=== PATIENT | female | born 1975 | race Caucasian/White ===

== ENCOUNTER → 2019-05-23 08:08 | Outpatient (CLI) | payer OTHER, SELFPAY ==
--- NOTE | 2019-05-23 | DI.MRI.S_ITS ---
PROCEDURE: MR SHOULDER LT WO CON INDICATIONS: Pain in left shoulder TECHNIQUE: Noncontrast oblique coronal T2 fast spin echo with fat saturation, oblique sagittal T1 spin echo and T2 fast spin echo with fat saturation, axial T1 spin echo and T2 fast spin echo with fat saturation through the shoulder. COMPARISON: [facility], CR, SHOULDER 2 VIEW, 12/14/2010, 15:39. [facility], CR, SHOULDER 2 VIEW, 03/25/2009, 13:18. [facility], MR, SHOULDER WITHOUT CONTRAST, 08/13/2013, 16:03. [facility], CR, CHEST 2 VIEW, 01/08/2010, 18:55. FINDINGS: Image quality: Excellent. Rotator cuff: There is thickening and irregularity of the supraspinatus and subscapularis tendons consistent with tendinitis. The infraspinatus tendon appear normal. Sagittal images demonstrate no rotator cuff muscle atrophy. Bones and bursae: Metallic artifact in the mid humeral shaft. There is retroversion. No bone marrow contusions or fractures. Mild acromioclavicular joint degeneration. The acromion demonstrates conventional anatomy, without an os acromiale. No pathologic subacromial-subdeltoid or subcoracoid bursal fluid is present. Capsule and soft tissues: There is degenerative fraying of the anterior superior labrum. In the absence of intra-articular contrast, the glenohumeral ligaments appear intact. The bicipital groove is empty, suspicious for tear of the long head of the biceps tendon. There is tenodeses of the long head of the biceps tendon. The rotator interval appears normal, without fibrosis. The coracohumeral ligament is normal in thickness. IMPRESSION: 1. Supraspinatus and subscapularis tendinitis. 2. The long head of the biceps tendon is not seen in the bicipital groove. There are surgical artifacts in the humeral shaft possibly related to biceps tenodesis. Recommend currently with surgical history. 3. Degenerative fraying of the anterior superior labrum. 4. Mild acromioclavicular joint degeneration. Dictated by: Jamison Lyles M.D. on 05/25/2019 at 17:41 Approved by: Jamison Lyles M.D. on 05/25/2019 at 18:47
== END ==
PROVIDERS: PCP Family Medicine Geriatric Medicine; Visit Provider Family Medicine Geriatric Medicine
DX: M25.512 Pain in left shoulder (principal); S46.212A Strain of muscle, fascia and tendon of other parts of biceps, left arm, initial encounter; M62.81 Muscle weakness (generalized); M19.012 Primary osteoarthritis, left shoulder; M77.9 Enthesopathy, unspecified
CPT/HCPCS: 73221

== ENCOUNTER → 2025-04-07 07:36 | Outpatient (CLI) | payer BC, SELFPAY ==
--- NOTE | 2025-04-07 07:40 | DI.MRI.S_ITS ---
PROCEDURE: MR LUMBAR SPINE WO CON INDICATIONS: Unspecified injury of lower back TECHNIQUE: Noncontrast sagittal T1 spin echo and T2 fast echo, sagittal STIR, and T2 fast spin echo through the lumbar spine. In cases with scoliosis, additional coronal T2 fast spin echo may be performed. COMPARISON: None. FINDINGS: Image quality: Excellent. Alignment and Curvature: There is normal bony alignment. Bone Marrow: Mixed Modic reactive endplate changes adjacent to the L2-L3 and L5-S1 discs. No acute vertebral body compression fractures. Spinal Cord: Conus medullaris terminates at the L1 level. Visualized cord demonstrates normal signal and size. Paraspinous Soft Tissues: No paravertebral masses. T12-L1: Normal appearance. L1-L2: Normal appearance. L2-L3: Loss of disc signal and height. Mild narrowing of the central canal. Mild to moderate bilateral neural foraminal narrowing. No neural compression. L3-L4: Loss of disc signal. Mild, diffuse disc bulge. Small right central disc extrusion. Extruded disc material extends inferiorly along the L4 vertebral body into the right L4 lateral recess. Extruded disc material abuts and compresses the right L4 nerve root. Mild narrowing of the central canal. Mild bilateral neural foraminal narrowing. L4-L5: Loss of disc signal and height. Mild to moderate diffuse disc bulge. Mild bilateral facet hypertrophy. Mild narrowing of the central canal. Moderate bilateral neural foraminal narrowing. No neural compression. L5-S1: Loss of disc signal and height. Moderate, diffuse disc bulge. Mild bilateral facet hypertrophy. No central stenosis. Severe bilateral neural foraminal narrowing with compression of the L5 nerve roots. IMPRESSION: Multilevel degenerative disc disease.. Multilevel facet arthropathy. L3-L4 right central disc extrusion. Extruded disc material compresses the right L4 nerve root. No severe central canal stenosis. Severe bilateral L5-S1 neural foraminal stenosis with compression of the L5 nerve roots. Dictated by: Yoselin Anguiano MD, PhD on 04/07/2025 at 12:49 Approved by: Yoselin Anguiano MD, PhD on 04/07/2025 at 12:53
== END ==
LOC: MRI 07:39
PROVIDERS: PCP Family Medicine Geriatric Medicine; Referring Provider Family Medicine Geriatric Medicine; Visit Provider Nurse Practitioner Family
DX: S39.92XA Unspecified injury of lower back, initial encounter (principal); N31.9 Neuromuscular dysfunction of bladder, unspecified; M51.16 Intervertebral disc disorders with radiculopathy, lumbar region; M51.17 Intervertebral disc disorders with radiculopathy, lumbosacral region; M47.26 Other spondylosis with radiculopathy, lumbar region; M47.27 Other spondylosis with radiculopathy, lumbosacral region; M48.061 Spinal stenosis, lumbar region without neurogenic claudication; M48.07 Spinal stenosis, lumbosacral region; X50.9XXA Other and unspecified overexertion or strenuous movements or postures, initial encounter
CPT/HCPCS: 72148

== ENCOUNTER → 2025-06-22 09:54 | Outpatient (CLI) | payer BC, SELFPAY ==
--- NOTE | 2025-06-22 09:56 | DI.RAD.S_ITS ---
PROCEDURE: XR LUMBAR SPINE 2-3V INDICATIONS: AP, lateral TECHNIQUE: 3 views of the lumbar spine were acquired. COMPARISON: [facility], MR, MR LUMBAR SPINE WO CON, 04/07/2025, 7:54. FINDINGS: Bones: 5 nonrib-bearing vertebrae are present. No acute vertebral body compression fractures. No suspicious bony lesions. Multilevel degenerative disease is most pronounced at the marked L5-S1, L4-5 and L2-3 disc narrowing. Multilevel facet sclerosis is most pronounced at L4-5 and L5-S1. No scoliosis or listhesis. Bilateral SI joint sclerosis is noted. Soft tissues: Overlying bowel gas pattern is normal. No suspicious soft tissue calcifications. IMPRESSION: No acute bony abnormality. Extensive multilevel degenerative disc and facet arthropathy as described above. Measuring 8 Dictated by: Evelyn Gonzalez M.D. on 06/22/2025 at 23:45 Approved by: Evelyn Gonzalez M.D. on 06/22/2025 at 23:47
== END ==
PROVIDERS: PCP Nurse Practitioner Family; Referring Provider Physical Medicine & Rehabilitation; Visit Provider Physical Medicine & Rehabilitation
DX: M51.360 Other intervertebral disc degeneration, lumbar region with discogenic back pain only (principal); M51.370 Other intervertebral disc degeneration, lumbosacral region with discogenic back pain only; M47.816 Spondylosis without myelopathy or radiculopathy, lumbar region; M47.817 Spondylosis without myelopathy or radiculopathy, lumbosacral region
CPT/HCPCS: 72100

== ENCOUNTER 2025-07-07 11:02 | Outpatient (CLI) | payer BC, SELFPAY ==
[2025-07-07 11:52] VITALS: BP 106/74; PULSE 85; RESP 16; TEMP 36.9; O2SAT 99
[2025-07-07 12:24] VITALS: BP 119/66; PULSE 67; RESP 16; O2SAT 100
[2025-07-07] MEDS: LIDOCAINE 1% (PF) 5 ML 10 ML INJ (12:27)
[2025-07-07 12:29] VITALS: BP 112/65; PULSE 74; RESP 17; O2SAT 100
[2025-07-07 12:36] VITALS: BP 120/77; PULSE 77; RESP 16; O2SAT 98
--- NOTE | 2025-07-07 13:13 | PM.PROC.IR.1 ---
Date/Time/Diagnoses Date of procedure: 07/07/25 Time of procedure: 12:30 Pre-procedure diagnosis: Lumbar radiculopathy Post-procedure diagnosis: same Procedure Notes Procedure: Interlaminar epidural steroid injection L3-4 Indications: Lumbar radiculopathy Physician: Roni Lucas Total sedation minutes: 0 Complications: none Procedure in detail & Post-procedure care: Patient is here for the planned procedure today as noted. No significant change since the last office visit. For additional clinical scenario please see those office notes. Focused exam: Vital signs reviewed as charted on intake. Gen: Well developed. No acute distress. CV: RRR, no M/R/G Chest: Non-labored breathing, CTAB. Psych: Alert and well-oriented. Mood/Affect: normal. Patient suitable for the planned procedure today: Yes === The following procedure was performed in the office today: Lumbar Epidural Steroid Injection with fluoroscopic guidance - Interlaminar approach (95107) Levels Treated: L3-4 Approach: interlaminar Soft tissue: [1% lidocaine 2 mL] Test dose: [1% lidocaine 1 mL] Injectate: 0.75 mL of Depo-Medrol (80mg/mL) in 1.25 mL 1% lidocaine and 1 mL normal saline Fluoroscopy Agent: Isovue 300-M 1.5 mL Notes: 3.5 in 20 gauge Touhy needle utilized and adequate. Right paramedian approach. No significant change in pain immediately postprocedure. Procedure: After discussing the risks, benefits, and alternatives to the procedure, the patient expressed understanding and wished to proceed. The risks include but are not limited to infection, allergic reaction, nerve damage, stroke, paralysis, epidural hematoma, syncope, headache, respiratory or cardiac arrest, spinal cord injury, and scar formation. Informed consent was obtained and all patient questions were answered. The patient was brought to the procedure suite and placed in the prone position. A pre-procedural pause was conducted to verify: correct patient identity, procedure to be performed and as applicable, correct side and site, correct patient position, and any special requirements. Using a paramedian approach from the side noted above, the region overlying the target was localized under fluoroscopic visualization and the soft tissues overlying this structure were infiltrated with the anesthetic listed above. With fluoroscopic guidance, a #20 gauge Tuohy needle (unless otherwise noted) was inserted into the epidural space using a paramedian approach. The epidural space was localized utilizing intermittent multiplanar fluoroscopic guidance and loss of resistance technique. After negative aspiration, the contrast noted above was injected into the epidural space and the flow of contrast was observed, confirming epidural spread without evidence of intravascular or intrathecal spread. Multi-planar radiographs were obtained for documentation purposes. A test dose of lidocaine was injected into the above noted epidural space, and the patient was observed for 30-60 seconds. No sensory deficits were reported and normal lower extremity motor function was noted. Subsequently, the injectate as noted above was administered into the level noted above. The patient tolerated the procedure well and was discharged after an appropriate period of observation. If there are any complications, the patient was instructed to call us. The patient is to follow-up with the requesting provider in 2-3 weeks. This note was compiled using voice recognition software and therefore may contain typos. Please contact the author with any questions or concerns.
== END 2025-07-07 12:42 | disposition home or self-care (01) ==
LOC: RAD 11:03
PROVIDERS: PCP Nurse Practitioner Family; Referring Provider Physical Medicine & Rehabilitation; Visit Provider Physical Medicine & Rehabilitation
DX: M51.16 Intervertebral disc disorders with radiculopathy, lumbar region (principal)
CPT/HCPCS: 62323; J1010